=== PATIENT | male | born 1955 | race American Indian/Alaskan Native ===

== ENCOUNTER 2017-02-19 08:53 | Inpatient (IN) | payer OTHER ==
[2017-02-19] MEDS ORDERED: NITRO-BID 2% TP ONE ×2 (08:59→09:11)
[2017-02-19] MEDS ORDERED: HEPARIN 10,000 UNITS/10 ML ONE (08:59)
--- NOTE | 2017-02-19 09:00 | Emergency Department Report ---
ED Chest Pain HPI - General Stated Complaint: POSS CVA Time Seen by Provider: 02/19/17 08:59 - History of Present Illness Initial Comments: Patient describes the onset of moderately severe substernal gas-like chest pain which radiated to the left shoulder onset approximately 8 AM today. States he' s never seen a coffee blender before and has no prior history of heart attack. He is taking lisinopril for hypertension. He denies diabetes. MD Complaint: chest pain -: Sudden Pain Location: substernal Pain Radiation: LUE Severity: moderate, severe Quality: other Consistency: constant Improves With: nothing Worsens With: nothing re: nausea Treatments Prior to Arrival: aspirin (given by EMS) - Related Data Allergies Allergy/AdvReac Type Severity Reaction Status Date / Time No Known Allergies Allergy Verified 02/19/17 08:58 MARCELLA score - Marcella Score Age > 65: (0) No Aspirin use within the Past 7 Days: (0) No 3 or more CAD Risk Factors: (1) Yes 2 or more Angina events in past 24 hrs: (0) No Known CAD with more than 50% Stenosis: (0) No Elevated Cardiac Markers: (0) No ST Deviation Greater than 0.5mm: (1) Yes MARCELLA Score: 2 ED Review of Systems ROS: Stated complaint: POSS CVA Other details as noted in HPI Constitutional: denies: chills, fever Eyes: denies: eye pain, eye discharge, vision change ENT: denies: ear pain, throat pain Respiratory: denies: cough, shortness of breath, wheezing Cardiovascular: chest pain. denies: palpitations Endocrine: no symptoms reported Gastrointestinal: nausea. denies: abdominal pain, diarrhea Genitourinary: denies: urgency, dysuria Musculoskeletal: denies: back pain, joint swelling, arthralgia Skin: denies: rash, lesions Neurological: denies: headache, weakness, paresthesias Psychiatric: denies: anxiety, depression Hematological/Lymphatic: denies: easy bleeding, easy bruising ED Past Medical Hx - Past Medical History Hx Hypertension: No - Social History Substance Use Type: None ED Physical Exam - General General appearance: alert, in no apparent distress, obese - Head Head exam: Present: atraumatic, normocephalic - Eye Eye exam: Present: normal appearance - ENT ENT exam: Present: mucous membranes moist - Neck Neck exam: Present: normal inspection - Respiratory Respiratory exam: Present: normal lung sounds bilaterally. Absent: respiratory distress - Cardiovascular Cardiovascular Exam: Present: regular rate, normal rhythm. Absent: systolic murmur, diastolic murmur, rubs, gallop - GI/Abdominal GI/Abdominal exam: Present: soft, normal bowel sounds. Absent: distended, tenderness, guarding, rebound, rigid - Rectal Rectal exam: Present: deferred - Extremities Exam Extremities exam: Present: normal inspection - Back Exam Back exam: Present: normal inspection - Neurological Exam Neurological exam: Present: alert, oriented X3, CN II-XII intact. Absent: motor sensory deficit - Psychiatric Psychiatric exam: Present: normal affect, normal mood - Skin Skin exam: Present: warm, dry, intact, normal color. Absent: rash ED Course - Reevaluation(s) Reevaluation #1: Grinder Dresser call. taxation consultant notified. 02/19/17 09:00 Reevaluation #2: Patient already transported to the company laborer 02/19/17 09:15 ED Medical Decision Making - Lab Data Laboratory Results - last 24 hr 02/19/17 08:57 WBC 10.4 RBC 4.38 Hgb 13.1 Hct 40.3 MCV 92 MCH 30 MCHC 33 RDW 14.5 Plt Count 203 Lymph % (Auto) 28.3 Dare % (Auto) 12.8 H Eos % (Auto) 3.6 Baso % (Auto) 0.7 Lymph # 2.9 Dare # 1.3 H Eos # 0.4 Baso # 0.1 Seg Neutrophils % 54.6 Seg Neutrophils # 5.7 - EKG Data EKG shows normal: sinus rhythm Rate: normal - EKG Data Interpretation: other (consistent with inferior wall STEMI) Critical care attestation.: If time is entered above; I have spent that time in minutes in the direct care of this critically ill patient, excluding procedure time. ED Disposition Clinical Impression: ST elevation myocardial infarction (STEMI) of inferior wall Disposition: - OP ADMIT IP TO THIS HOSP Is pt being admited?: Yes Does the pt Need Aspirin: Yes Condition: Stable Time of Disposition: :
[2017-02-19] MEDS ORDERED: CALAN ONE (09:06)
[2017-02-19] MEDS ORDERED: HEPARIN/NS 5000 UNIT/500ML(CATH LAB) 1,000 ML IR ONE (09:06)
[2017-02-19] MEDS ORDERED: NITROGLYCERIN SYRINGE 3 ML ONE (09:07)
[2017-02-19] MEDS ORDERED: XYLOCAINE 2% INFILTRATI ONE (09:07)
[2017-02-19] MEDS ORDERED: WATER FOR INJ (PF) 0 ML ONE (09:08)
[2017-02-19] MEDS ORDERED: VERSED ONE (09:08)
[2017-02-19] MEDS ORDERED: NACL 0.9% 1000 ML 1,000 ML ONE (09:08)
[2017-02-19] MEDS ORDERED: NACL 0.9% 0 ML ONE (09:08)
[2017-02-19] MEDS ORDERED: ANGIOMAX IV ONE (09:09)
[2017-02-19] MEDS ORDERED: ZOFRAN IV ONE (09:11)
[2017-02-19] MEDS ORDERED: HEPARIN IV ONE (09:11)
[2017-02-19 09:15] LABS: Basophils % (Auto) 0.7 % (0.0-1.8); Eosinophils % (Auto) 3.6 % (0.0-4.3); Hematocrit 40.3 % (35.5-45.6); Hemoglobin 13.1 gm/dl (11.8-15.2); Mean Corpuscular HGB Conc 33 % (32-34); Mean Corpuscular Hemoglobin 30 pg (28-32); Mean Corpuscular Volume 92 fl (84-94); Platelet Count 203 K/mm3 (140-440); Red Blood Count 4.38 M/mm3 (3.65-5.03); Red Cell Distribution Width 14.5 % (13.2-15.2); White Blood Count 10.4 K/mm3 (4.5-11.0)
[2017-02-19] MEDS: HEPARIN 10,000 UNITS/10 ML ONE ×2 (09:17→09:40)
[2017-02-19] MEDS: NACL 0.9% 1000 ML 1,000 ML IV ONE ×2 (09:17→12:24)
[2017-02-19 09:24] LABS: Anion Gap 19 mmol/L; BUN/Creatinine Ratio 18.75; Blood Urea Nitrogen 15 mg/dL (9-20); Calcium 8.8 mg/dL (8.4-10.2); Carbon Dioxide 24 mmol/L (22-30); Chloride 98.7 mmol/L (98-107); Glucose 223 mg/dL (75-100); Potassium 3.5 mmol/L (3.6-5.0); Sodium 138 mmol/L (137-145)
[2017-02-19] MEDS: SUBLIMAZE ONE ×2 (09:24→09:32)
[2017-02-19] MEDS ORDERED: AGGRASTAT DRIP (12.5 MG/250 ML) 12,500 MCG/250 ML BAG IV ONE (09:36)
[2017-02-19] MEDS: TRIDIL DRIP 50MG/250ML 50 MG/250 ML BOTTLE ONE ×2 (09:45→20:00)
--- NOTE | 2017-02-19 09:45 | Admit Criteria Form ---
Admission Criteria Documentation: MYOCARDIAL INFARCTION Clinical Indications for Admission to Inpatient Care (Place 'X' for any and all applicable criteria): Admission is indicated for 1 or more of the following (1)(2)(3)(4): [X ]I. Acute UT [ ]II. Contraindications and/or Inappropriate clinical situations for Observational Care in patients with Myocardial Infarction, when ANY ONE of the following is required: [ ]a) Patient with High risk of cardiac embolism (e.g, patients with previous cardiac embolism, LVEF < 40%, age >75 and patients with prosthetic valve) 18 [ ]b) Patient with Moderate risk including DM patient, CAD and patient aged 65-75 18 [ ]c) Patient with any change in cardiac biomarker especially troponin should be managed as high risk in an inpatient setting 19 [ ]d) Physician judgement irrespective of ECG and other diagnostic findings 20 [ X]III.General contraindications and/or Inappropriate clinical situations for Observational Care in patients with Myocardial Infarction, when ANY ONE of the following is required: [ X]a) Prediction of prolongation of LOS based on ANY ONE of the following may be considered as a contraindication for observational care 2, 3, 4, 5, 6, 7, 8, 9, 10, 11 [ ]i) Age > 65 yrs. [ X]ii) Patient arriving by ambulance [ ]iii) Patient with high acuity [ ]iv) Patient requiring vital sign monitoring [ ]v) Patient on IV medication [ ]b) Systolic blood pressures greater than or equal to 180mmHg 3,12 [ ]c) Patient with altered mental status including delirium and other alteration of consciousness, (3) [ ]d) Patient whose discharge disposition will be to a fci home or rehabilitation home should not be managed in Emergency Department Observation Unit. CMS rule requires 3 days hospital stay before such placement. 3,13 [ ]e) Patient with failure to thrive due to broad array of etiologies 3 ,16,17 [ ]f) Inability to ambulate 3,14 Extended stay beyond goal length of stay may be needed for (1)(18)(20)(24)(25): [ ]a) Hemodynamic instability, persisting symptoms after intensive medical management, or recurring severe, prolonged symptoms [ ]b) Intravascular procedural complications such as acute vessel closure, stent thrombosis, stent malposition, or vessel dissection (26)(27)(28) [ ]c) Extravascular procedural complications such as retroperitoneal hematoma , pericardial effusion, or cardiac tamponade [ ]d) Entry site complications causing bleeding, hematoma or distal ischemia and requiring ongoing monitoring, surgical repair or surgical thrombectomy. Dangerous arrhythmia [ ]e) Complicated percutaneous coronary intervention (e.g., unsuccessful percutaneous coronary intervention or percutaneous coronary intervention of non- [place] vessel) [ ]f) Urgent or emergent surgery for complications of UT (e.g., ventricular rupture, valvular insufficiency) [ ]g) Surgical revascularization via coronary artery bypass graft [ ]h) Heart failure (e.g., pulmonary edema) [ ]i) Unstable pulmonary comorbidities, including COPD or pneumonia (31) [ ]j) Acute renal failure The original [employer] content created by [employer] has been revised. The portions of the content which have been revised are identified through the use of italic text or in bold, and [employer] has neither reviewed nor approved the modified material. All other unmodified content is copyright [employer] Please see references footnoted in the original [employer] edition 2016 Admission Criteria Met: Yes
[2017-02-19 10:00] LABS: INR 0.94 (0.87-1.13)
[2017-02-19] MEDS ORDERED: ASPIRIN PO SCH (10:00)
[2017-02-19 10:01] LABS: Partial Thromboplastin Time 26.5 Sec. (24.2-36.6)
[2017-02-19] MEDS ORDERED: EFFIENT PO ONE (10:04)
[2017-02-19] MEDS ORDERED: ALUM-MAG HYDROX-SIMETH 200-200-20MG/5ML ONE (10:04)
--- NOTE | 2017-02-19 10:19 | Consultation ---
History of Present Illness Consult date: 02/19/17 Consult reason: chest pain, other (STEMI) History of present illness: 61y M patient of [facility], history of HTN and sleep apnea. No prior cardiac history. No significant prior cardiac workup. Presented with chest pain and ECG consistent with acute STEMI of the inferior wall. Emergency cardiac cath-100% mid occlusion of the RCA was treated with a 3.5mm DE stent. Excellent result, MARCELLA 3 flow restored, pain and ST changes resolved. Admitted to CCU post AL. Past History Past Medical History: hypertension, other (GATITO) Medications and Allergies Allergies Allergy/AdvReac Type Severity Reaction Status Date / Time No Known Allergies Allergy Verified 02/19/17 08:58 Active Meds: Active Medications Heparin Sodium (Porcine) (Heparin) 4,000 unit IV ONCE ONE Stop: 02/19/17 09:12 Last Admin: 02/19/17 09:12 Dose: 4,000 unit Sodium Chloride (Nacl 0.9% 1000 Ml) 1,000 mls @ 42 mls/hr IV ONCE ONE Stop: 02/20/17 08:46 Review of Systems Cardiovascular: chest pain, shortness of breath, no orthopnea, no palpitations, no rapid/irregular heart beat, no edema, no syncope, no lightheadedness Physical Examination Vital Signs Resp 14 02/19/17 08:50 General appearance: mild distress, obese HEENT: Positive: PERRL Neck: Positive: neck supple Cardiac: Positive: Reg Rate and Rhythm Lungs: Positive: Decreased Breath Sounds Neuro: Positive: Grossly Intact Abdomen: Positive: Soft Male genitourinary: Positive: deferred Skin: Positive: Clear Extremities: Absent: edema Results 02/19/17 08:57 02/19/17 08:57 Coagulation 02/19/17 Range/Units 08:57 PT 12.5 (12.2-14.9) Sec. INR 0.94 (0.87-1.13) APTT 26.5 (24.2-36.6) Sec. CBC 02/19/17 Range/Units 08:57 WBC 10.4 (4.5-11.0) K/mm3 RBC 4.38 (3.65-5.03) M/mm3 Hgb 13.1 (11.8-15.2) gm/dl Hct 40.3 (35.5-45.6) % Plt Count 203 (140-440) K/mm3 Lymph # 2.9 (1.2-5.4) K/mm3 Lee # 1.3 H (0.0-0.8) K/mm3 Eos # 0.4 (0.0-0.4) K/mm3 Baso # 0.1 (0.0-0.1) K/mm3 Comprehensive Metabolic Panel 02/19/17 Range/Units 08:57 Sodium 138 (137-145) mmol/L Potassium 3.5 L (3.6-5.0) mmol/L Chloride 98.7 (98-107) mmol/L Carbon Dioxide 24 (22-30) mmol/L BUN 15 (9-20) mg/dL Creatinine 0.8 (0.8-1.5) mg/dL Glucose 223 H (75-100) mg/dL Calcium 8.8 (8.4-10.2) mg/dL EKG interpretations - Telemetry EKG Rhythm: Sinus Rhythm (Inferior STEMI) Assessment and Plan - Patient Problems (1) ST elevation myocardial infarction (STEMI) of inferior wall Current Visit: Yes Status: Acute Plan to address problem: 61y M patient of [facility], history of HTN and sleep apnea. No prior cardiac history. No significant prior cardiac workup. Presented with chest pain and ECG consistent with acute STEMI of the inferior wall. Emergency cardiac cath-100% mid occlusion of the RCA was treated with a 3.5mm DE stent. Excellent result, MARCELLA 3 flow restored, pain and ST changes resolved. Admitted to CCU post AL
--- NOTE | 2017-02-19 10:28 | Cardiac Catherization Report ---
CARDIAC CATHETERIZATION AND CORONARY ANGIOPLASTY REASON FOR PROCEDURE: The patient is a 61-year-old man with history of hypertension and sleep apnea, patient of [facility]. He was brought to the Emergency Room today with chest pain, ECG consistent with an acute ST elevation myocardial infarction of the inferior wall. Emergency cardiac catheterization protocol was activated. PROCEDURE: The patient was prepped and draped in a sterile fashion under emergency protocol. The right femoral artery was entered using the Seldinger technique followed by placement of a 6-Singaporean sheath. A 5-Singaporean sheath was placed in the right femoral vein. Left coronary angiography was performed using a #4 left Alec catheter. Following left coronary angiography, we exchanged for a #4 right Alec guide, which was used for right coronary angiography. The angiograms were reviewed. CORONARY ANGIOGRAPHY: The left main coronary artery contained no significant disease. The left anterior descending artery and its diagonal branches contained minimal irregularities. The circumflex artery and its obtuse marginal branches contained mild irregularities. The right coronary artery was dominant. This vessel was completely occluded in its mid segment. This was the infarct lesion. CORONARY ANGIOPLASTY: A 0.014 inch Coding Advisor 50 guidewire was then introduced into the right coronary artery, successfully penetrating the completely occluded mid vessel. Following wire placement, a 3.0 mm balloon catheter was used to predilate the stenosis. Following predilatation angioplasty, we deployed a 3.5 x 18 mm Resolute drug-eluting stent, covering the entire lesion of segment. The stent was inflated to optimal pressures. Following stenting, there was an excellent angiographic result, 0 residual stenosis. There was jewish of MARCELLA 3 flow. Angioplasty revealed a large caliber ectatic, dominant vessel. The patient was returned to the postprocedure unit in stable condition, following after the sheaths were removed and an Angio-Seal device was used over the right femoral arteriotomy. CONCLUSIONS: 1. Acute inferior wall ST elevation myocardial infarction. 2. Emergency cardiac catheterization protocol. 3. A 100% occlusion of the mid right coronary artery. 4. Successful primary angioplasty and stenting of the right coronary artery, using a 3.5 mm drug-eluting stent, with jewish of MARCELLA 3 flow. [facility]# [id number] [place]/NTS
[2017-02-19] MEDS ORDERED: AGGRASTAT DRIP (12.5 MG/250 ML) 12,500 MCG/250 ML BAG IV SCH (11:00)
[2017-02-19] MEDS ORDERED: NACL 0.9% 1000 ML 1,000 ML IV SCH (11:00)
[2017-02-19] MEDS ORDERED: ZOFRAN IV PRN (11:33)
[2017-02-19] MEDS ORDERED: MILK OF MAGNESIA PO PRN (11:33)
[2017-02-19] MEDS ORDERED: DULCOLAX PR PRN (11:33)
[2017-02-19] MEDS ORDERED: MORPHINE IV PRN (11:33)
[2017-02-19] MEDS ORDERED: TYLENOL PO PRN (11:33)
--- NOTE | 2017-02-19 14:09 | History and Physical Report ---
History of Present Illness Date of examination: 02/19/17 Date of admission: 02/19/17 11:33 Chief complaint: Chest pain History of present illness: Patient is a 61-year-old man with a history of morbid obesity BMI 47.5, hypertension and sleep apnea who presents with constant substernal moderately severe gas-like chest pains radiating to the left shoulder which started 8 AM today. Patient denies any aggravating or relieving factors. He received aspirin prior to arrival. Past medical history: As HPI Past surgical history: Internal hernia repair Social history: He denies smoking, alcohol abuse or illegal drugs Family history: He denies any significant family history ROS: as HPI and all other ROS reviewed and negative. Past History Past Medical History: hypertension, other (GATITO) Medications and Allergies Allergies Allergy/AdvReac Type Severity Reaction Status Date / Time No Known Allergies Allergy Verified 02/19/17 08:58 Home Medications Medication Instructions Recorded Confirmed Last Taken Type Dutasteride/Tamsulosin HCl 1 tab PO DAILY 02/19/17 02/19/17 02/19/17 History [Dutasteride-Tamsulosin 0.5-0.4] Lisinopril [Zestril TAB] 10 mg PO DAILY 02/19/17 02/19/17 02/19/17 History Motrin 800 MG tab 800 mg PO DAILY PRN 02/19/17 02/19/17 02/19/17 History Active Meds: Active Medications Acetaminophen (Tylenol) 650 mg PO Q4H PRN PRN Reason: Pain MILD(1-3)/Fever >100.5/LIN Aspirin (Ecotrin) 325 mg PO QDAY COURTNEY Atorvastatin Calcium (Lipitor) 40 mg PO QHS COURTNEY Bisacodyl (Dulcolax) 10 mg IA QDAY PRN PRN Reason: Constipation unrelieved by MOM Enoxaparin Sodium (Lovenox) 40 mg SUB-Q QDAY COURTNEY Famotidine (Pepcid) 20 mg IV QDAY COURTNEY Sodium Chloride (Nacl 0.9% 1000 Ml) 1,000 mls @ 42 mls/hr IV ONCE ONE Stop: 02/20/17 08:46 Last Admin: 02/19/17 12:24 Dose: 42 mls/hr Sodium Chloride (Nacl 0.9% 1000 Ml) 1,000 mls @ 100 mls/hr IV DIRECT COURTNEY Stop: 02/19/17 20:59 Sodium Chloride (Nacl 0.9% 1000 Ml) 1,000 mls @ 100 mls/hr IV DIRECT [facility] Lisinopril (Zestril) 2.5 mg PO QDAY [facility] Magnesium Hydroxide (Milk Of Magnesia) 30 ml PO Q4H PRN PRN Reason: Constipation Metoprolol Tartrate (Lopressor) 50 mg PO BID [facility] Morphine Sulfate (Morphine) 2 mg IV Q4H PRN PRN Reason: Pain, Moderate (4-6) Nitroglycerin (Nitro Dur) 0.4 mg TD DAILY@0600 [facility] Ondansetron HCl (Zofran) 4 mg IV Q8H PRN PRN Reason: N/V unrelieved by Reglan Prasugrel (Effient) 10 mg PO QDAY [facility] Exam - Physical Exam Narrative exam: GEN: WDWN, NAD, AWAKE, ALERT, ORIENTATED x 3 HEENT: NCAT, PERRL, EOMI, OP CLEAR NECK: SUPPLE, NO THYROMEGALY, NO JVD, NO LAD CVS: RRR, NORMAL S1S2 LUNGS/CHEST: CTA B, NORMAL CHEST EXPANSION B, GOOD AIR ENTRY B ABD: SOFT, NTND, GBS, NO REBOUND OR GUARDING EXT/SKIN: NO SIGNIFICANT EDEMA OR RASH MSK: FROM X 4 EXTREMITIES NEURO: CN 2-12 GROSSLY INTACT, NO FOCAL DEFICITS PSY: CALM - Constitutional Vitals: Temp Pulse Resp BP Pulse Ox 98.4 F 106 H 19 141/89 99 02/19/17 11:30 02/19/17 13:00 02/19/17 13:00 02/19/17 13:00 02/19/17 13:00 Results - Labs CBC & Chem 7: 02/19/17 08:57 02/19/17 08:57 Assessment and Plan Patient is a 61-year-old man with a history of morbid obesity BMI 47.5, hypertension and sleep apnea who presents with constant substernal moderately severe gas-like chest pains radiating to the left shoulder which started 8 AM today. Patient denies any aggravating or relieving factors. He received aspirin prior to arrival. He was found to have ST elevation OK, rig supervisor, Dr. Romero, requested hospitalist to admit for this. Patient was seen after emergent cardiac catheterization. It appears he had 100% occlusion of RCA which a stent was placed. -STEMI: Management per cardiology -Hypertension: Beta miguel angel -Morbid obesity: Lifestyle modification discussed in detail. -DVT prophylaxis: Effient Echo pending
[2017-02-19] MEDS: LOPRESSOR PO SCH ×2 (15:03→22:30)
--- NOTE | 2017-02-19 23:15 | Progress Note ---
Assessment and Plan CAD s/p AMI s/p PCI of RCA with JYOTSNA -100% mid occlusion of the RCA was treated with a 3.5mm DE stent HTN sleep apnea hemodynamically stable Asymptomatic Continue BB, statin and DAPT for at least 1 year continue CPAP for GATITO Subjective Date of service: 02/20/17 Interval history: No acute events. Resting comfortably. No chest pain or SOB. Objective Vital Signs Temp Pulse Pulse Pulse Resp Resp BP 02/19/17 22:30 77 131/83 02/19/17 22:13 79 20 135/77 02/19/17 22:00 78 19 21 135/77 02/19/17 21:30 78 19 135/76 02/19/17 21:00 86 14 125/82 02/19/17 20:30 81 15 130/81 02/19/17 20:15 02/19/17 20:00 99.1 F 87 19 76/46 02/19/17 19:40 87 19 119/65 02/19/17 19:30 84 20 119/65 02/19/17 19:21 82 17 114/62 02/19/17 19:10 79 22 168/102 02/19/17 19:00 93 H 18 176/117 02/19/17 18:50 86 16 151/102 02/19/17 18:40 80 17 137/90 02/19/17 18:30 78 18 137/90 02/19/17 18:21 78 19 107/83 02/19/17 18:11 82 16 107/77 02/19/17 18:01 87 18 121/79 02/19/17 17:51 79 16 121/79 02/19/17 17:41 76 18 127/79 02/19/17 17:30 83 16 127/79 02/19/17 17:21 84 14 120/71 02/19/17 17:11 83 16 126/75 02/19/17 17:00 83 82 17 126/75 02/19/17 16:51 88 16 125/71 02/19/17 16:41 87 17 132/90 02/19/17 16:31 90 20 132/90 02/19/17 16:21 93 H 15 145/88 02/19/17 16:15 99.6 F 02/19/17 16:13 02/19/17 16:12 94 H 16 02/19/17 16:06 99 H 15 02/19/17 15:30 100 H 17 135/80 02/19/17 15:08 99 H 16 140/90 02/19/17 15:03 104 H 153/90 02/19/17 14:55 104 H 15 153/90 02/19/17 14:30 105 H 12 154/94 02/19/17 14:00 103 H 16 152/89 02/19/17 13:52 101 H 16 02/19/17 13:30 104 H 20 141/78 02/19/17 13:00 106 H 19 141/89 02/19/17 12:30 97 H 16 152/108 02/19/17 12:15 100 H 20 153/96 02/19/17 12:00 91 H 22 138/86 02/19/17 11:45 85 20 130/90 Pulse Ox 02/19/17 22:30 02/19/17 22:13 98 02/19/17 22:00 99 02/19/17 21:30 97 02/19/17 21:00 96 02/19/17 20:30 95 02/19/17 20:15 97 02/19/17 20:00 97 02/19/17 19:40 95 02/19/17 19:30 96 02/19/17 19:21 95 02/19/17 19:10 96 02/19/17 19:00 02/19/17 18:50 02/19/17 18:40 97 02/19/17 18:30 97 02/19/17 18:21 98 02/19/17 18:11 96 02/19/17 18:01 96 02/19/17 17:51 99 02/19/17 17:41 99 02/19/17 17:30 100 02/19/17 17:21 98 02/19/17 17:11 96 02/19/17 17:00 97 02/19/17 16:51 99 02/19/17 16:41 99 02/19/17 16:31 99 02/19/17 16:21 99 02/19/17 16:15 02/19/17 16:13 99 02/19/17 16:12 99 02/19/17 16:06 99 02/19/17 15:30 100 02/19/17 15:08 100 02/19/17 15:03 02/19/17 14:55 100 02/19/17 14:30 97 02/19/17 14:00 99 02/19/17 13:52 98 02/19/17 13:30 98 02/19/17 13:00 99 02/19/17 12:30 100 02/19/17 12:15 99 02/19/17 12:00 100 02/19/17 11:45 100 - Physical Examination HEENT: Positive: PERRL Neck: Positive: neck supple Neuro: Positive: Grossly Intact Abdomen: Positive: Soft Skin: Positive: Clear Extremities: Absent: edema - Labs and Meds Lipids 02/19/17 Range/Units 16:31 Triglycerides 96 (2-149) mg/dL Cholesterol 148 (50-199) mg/dL HDL Cholesterol 59 (40-59) mg/dL Cholesterol/HDL Ratio 2.50 %
[2017-02-20] MEDS: NACL 0.9% 1000 ML 1,000 ML IV SCH ×2 (04:30→15:15)
[2017-02-20 04:51] LABS: Basophils % (Auto) 0.5 % (0.0-1.8); Eosinophils % (Auto) 0.7 % (0.0-4.3); Hematocrit 37.4 % (35.5-45.6); Mean Corpuscular HGB Conc 32 % (32-34); Mean Corpuscular Hemoglobin 30 pg (28-32); Mean Corpuscular Volume 92 fl (84-94); Platelet Count 211 K/mm3 (140-440); Red Blood Count 4.05 M/mm3 (3.65-5.03); Red Cell Distribution Width 14.7 % (13.2-15.2); White Blood Count 10.9 K/mm3 (4.5-11.0)
[2017-02-20 05:15] LABS: Creatine Kinase MB 46.9 ng/mL (0.0-4.0)
[2017-02-20 05:17] LABS: Anion Gap 18 mmol/L; BUN/Creatinine Ratio 17.14; Blood Urea Nitrogen 12 mg/dL (9-20); Calcium 8.3 mg/dL (8.4-10.2); Carbon Dioxide 25 mmol/L (22-30); Chloride 99.7 mmol/L (98-107); Creatine Kinase 954 units/L (55-170); Glucose 147 mg/dL (75-100); Potassium 4.4 mmol/L (3.6-5.0); Sodium 138 mmol/L (137-145)
[2017-02-20] MEDS: NITRO DUR TD SCH (05:22)
[2017-02-20] MEDS: PEPCID IV SCH (09:14)
[2017-02-20] MEDS: EFFIENT PO SCH (09:14)
[2017-02-20] MEDS: LOPRESSOR PO SCH ×2 (09:15→21:41)
[2017-02-20] MEDS: ZESTRIL PO SCH (09:15)
[2017-02-20] MEDS: BABY ASPIRIN PO SCH (09:15)
[2017-02-20] MEDS ORDERED: ECOTRIN PO SCH (10:00)
[2017-02-20] MEDS ORDERED: LOVENOX SUB-Q SCH (10:00)
--- NOTE | 2017-02-20 11:00 | XRay Report ---
AP CHEST : 02/20/17 02:06 CLINICAL: Status post PCI. COMPARISON:None FINDINGS: Normal heart and pulmonary vessels. The lungs are normally expanded and clear. The bones and soft tissues are unremarkable.No tubes or lines. IMPRESSION: Normal chest.
--- NOTE | 2017-02-20 12:03 | Progress Note ---
Assessment and Plan Assessment and plan: Patient is a 61-year-old man with a history of morbid obesity BMI 47.5, hypertension and sleep apnea who presents with constant substernal moderately severe gas-like chest pains radiating to the left shoulder which started 8 AM today. Patient denies any aggravating or relieving factors. He received aspirin prior to arrival. He was found to have ST elevation IA, advisory application developer, Dr. Romero, requested hospitalist to admit for this. Patient was seen after emergent cardiac catheterization. It appears he had 100% occlusion of RCA which a stent was placed. -STEMI, inferior: Management per cardiology, s/p PCI of RCA with JYOTSNA -Hypertension: Beta miguel angel -Morbid obesity: Lifestyle modification discussed in detail. -DVT prophylaxis: Effient -Acute Diastolic heart failure Echo report still pending, has been done Hypotensive: consider decreasing lopressor defer to Cardiology Ok to transfer out of ICU if ok with Cardiology History Interval history: Patient seen and examined. Follow up on acute IA. Overnight uneventful. No cp, sob, n/v or severe headaches. Imaging, old records, testing, labs, nursing notes reviewed. Hospitalist Physical - Physical exam Narrative exam: GEN: WDWN, NAD, AWAKE, ALERT, ORIENTATED x 3 HEENT: NCAT, PERRL, EOMI, OP CLEAR NECK: SUPPLE, NO THYROMEGALY, NO JVD, NO LAD CVS: RRR, NORMAL S1S2 LUNGS/CHEST: CTA B, NORMAL CHEST EXPANSION B, GOOD AIR ENTRY B ABD: SOFT, NTND, GBS, NO REBOUND OR GUARDING EXT/SKIN: NO SIGNIFICANT EDEMA OR RASH MSK: FROM X 4 EXTREMITIES NEURO: CN 2-12 GROSSLY INTACT, NO FOCAL DEFICITS PSY: CALM - Constitutional Vitals: Temp Pulse Resp BP Pulse Ox 98.8 F 68 16 80/48 97 02/20/17 08:00 02/20/17 09:30 02/20/17 09:30 02/20/17 11:01 02/20/17 11:01 General appearance: Present: obese. Absent: mild distress Results - Labs CBC & Chem 7: 02/20/17 04:24 02/20/17 04:24 Labs: Laboratory Last Values WBC 10.9 K/mm3 (4.5-11.0) 02/20/17 04:24 RBC 4.05 M/mm3 (3.65-5.03) 02/20/17 04:24 Hgb 12.0 gm/dl (11.8-15.2) 02/20/17 04:24 Hct 37.4 % (35.5-45.6) 02/20/17 04:24 MCV 92 fl (84-94) 02/20/17 04:24 MCH 30 pg (28-32) 02/20/17 04:24 MCHC 32 % (32-34) 02/20/17 04:24 RDW 14.7 % (13.2-15.2) 02/20/17 04:24 Plt Count 211 K/mm3 (140-440) 02/20/17 04:24 Lymph % (Auto) 21.7 % (13.4-35.0) 02/20/17 04:24 [place] % (Auto) 10.1 % (0.0-7.3) H 02/20/17 04:24 Eos % (Auto) 0.7 % (0.0-4.3) 02/20/17 04:24 Baso % (Auto) 0.5 % (0.0-1.8) 02/20/17 04:24 Lymph # 2.4 K/mm3 (1.2-5.4) 02/20/17 04:24 [place] # 1.1 K/mm3 (0.0-0.8) H 02/20/17 04:24 Eos # 0.1 K/mm3 (0.0-0.4) 02/20/17 04:24 Baso # 0.1 K/mm3 (0.0-0.1) 02/20/17 04:24 Seg Neutrophils % 67.0 % (40.0-70.0) 02/20/17 04:24 Seg Neutrophils # 7.3 K/mm3 (1.8-7.7) 02/20/17 04:24 PT 12.5 Sec. (12.2-14.9) 02/19/17 08:57 INR 0.94 (0.87-1.13) 02/19/17 08:57 APTT 26.5 Sec. (24.2-36.6) 02/19/17 08:57 Sodium 138 mmol/L (137-145) 02/20/17 04:24 Potassium 4.4 mmol/L (3.6-5.0) D 02/20/17 04:24 Chloride 99.7 mmol/L (98-107) 02/20/17 04:24 Carbon Dioxide 25 mmol/L (22-30) 02/20/17 04:24 Anion Gap 18 mmol/L 02/20/17 04:24 BUN 12 mg/dL (9-20) 02/20/17 04:24 Creatinine 0.7 mg/dL (0.8-1.5) L 02/20/17 04:24 Estimated GFR > 60 ml/min 02/20/17 04:24 BUN/Creatinine Ratio 17.14 % 02/20/17 04:24 Glucose 147 mg/dL (75-100) H 02/20/17 04:24 Calcium 8.3 mg/dL (8.4-10.2) L 02/20/17 04:24 Total Creatine Kinase 954 units/L (55-170) H 02/20/17 04:24 CK-MB (CK-2) 46.9 ng/mL (0.0-4.0) H 02/20/17 04:24 CK-MB (CK-2) Rel Index 4.9 (0-4) H 02/20/17 04:24 Troponin T 1.440 ng/mL (0.00-0.029) H* D 02/20/17 04:24 Triglycerides 96 mg/dL (2-149) 02/19/17 16:31 Cholesterol 148 mg/dL (50-199) 02/19/17 16:31 LDL Cholesterol Direct 70 mg/dL (50-130) 02/19/17 16:31 HDL Cholesterol 59 mg/dL (40-59) 02/19/17 16:31 Cholesterol/HDL Ratio 2.50 % 02/19/17 16:31 Blood Type B POSITIVE 02/19/17 08:57 Antibody Screen TNR 02/19/17 08:57 QUYEN Antibody Screen Negative 02/19/17 08:57
--- NOTE | 2017-02-20 13:50 | Consultation ---
History of Present Illness - Reason for Consult Consult date: 02/20/17 NSTEMI s/p PCI with ICU Care Requesting physician: DWIGHT FORD - History of Present Illness 61 y/o male with NSTEMI, status post PCI on yesterday. Brought to ICU for monitoring. Stable. Per nursing seen by Cards this am but no note yet today. IMS ready to transfer out of unit which I agree with. Past History Past Medical History: hypertension, other (GATITO) Medications and Allergies Allergies Allergy/AdvReac Type Severity Reaction Status Date / Time No Known Allergies Allergy Verified 02/19/17 08:58 Home Medications Medication Instructions Recorded Confirmed Last Taken Type Dutasteride/Tamsulosin HCl 1 tab PO DAILY 02/19/17 02/19/17 02/19/17 History [Dutasteride-Tamsulosin 0.5-0.4] Lisinopril [Zestril TAB] 10 mg PO DAILY 02/19/17 02/19/17 02/19/17 History Motrin 800 MG tab 800 mg PO DAILY PRN 02/19/17 02/19/17 02/19/17 History Active Meds: Active Medications Acetaminophen (Tylenol) 650 mg PO Q4H PRN PRN Reason: Pain MILD(1-3)/Fever >100.5/LIN Aspirin (Baby Aspirin) 81 mg PO QDAY [facility] Last Admin: 02/20/17 09:15 Dose: 81 mg Atorvastatin Calcium (Lipitor) 40 mg PO QHS [facility] Last Admin: 02/19/17 22:28 Dose: 40 mg Bisacodyl (Dulcolax) 10 mg [place] QDAY PRN PRN Reason: Constipation unrelieved by MOM Famotidine (Pepcid) 20 mg IV QDAY [facility] Last Admin: 02/20/17 09:14 Dose: 20 mg Sodium Chloride (Nacl 0.9% 1000 Ml) 1,000 mls @ 100 mls/hr IV DIRECT [facility] Last Admin: 02/20/17 04:30 Dose: 100 mls/hr Lisinopril (Zestril) 2.5 mg PO QDAY [facility] Last Admin: 02/20/17 09:15 Dose: 2.5 mg Magnesium Hydroxide (Milk Of Magnesia) 30 ml PO Q4H PRN PRN Reason: Constipation Metoprolol Tartrate (Lopressor) 50 mg PO BID [facility] Last Admin: 02/20/17 09:15 Dose: 50 mg Morphine Sulfate (Morphine) 2 mg IV Q4H PRN PRN Reason: Pain, Moderate (4-6) Nitroglycerin (Nitro Dur) 0.4 mg TD DAILY@0600 [facility] Last Admin: 02/20/17 05:22 Dose: 0.4 mg Ondansetron HCl (Zofran) 4 mg IV Q8H PRN PRN Reason: N/V unrelieved by Reglan Prasugrel (Effient) 10 mg PO QDAY [facility] Last Admin: 02/20/17 09:14 Dose: 10 mg Exam - Constitutional Vitals: Temp Pulse Resp BP Pulse Ox 98.4 F 72 15 110/67 96 02/20/17 12:00 02/20/17 13:01 02/20/17 13:01 02/20/17 13:01 02/20/17 13:01 General appearance: Present: no acute distress - EENT Eyes: Present: PERRL, EOM intact ENT: hearing intact - Respiratory Respiratory effort: normal Respiratory: bilateral: CTA - Cardiovascular Rhythm: regular Heart Sounds: Present: S1 & S2 Results - Labs CBC & Chem 7: 02/20/17 04:24 02/20/17 04:24 Labs: Abnormal lab results 02/19/17 02/20/17 02/20/17 Range/Units 16:31 04:24 04:24 [place] % (Auto) 10.1 H (0.0-7.3) % [place] # 1.1 H (0.0-0.8) K/mm3 Creatinine 0.7 L (0.8-1.5) mg/dL Glucose 147 H (75-100) mg/dL Calcium 8.3 L (8.4-10.2) mg/dL Total Creatine Kinase 954 H (55-170) units/L CK-MB (CK-2) 46.9 H (0.0-4.0) ng/mL CK-MB (CK-2) Rel Index 4.9 H (0-4) Troponin T 3.360 H* D 1.440 H* D (0.00-0.029) ng/mL - Imaging and Cardiology Chest x-ray: image reviewed (clear) Assessment and Plan 61 y/o male with NSTEMI, status post PCI 1. Agree with [facility] in regards to transfer 2. Will sign off once out of unit
[2017-02-21] MEDS: NITRO DUR TD SCH (06:55)
--- NOTE | 2017-02-21 08:25 | Progress Note ---
Assessment and Plan CAD s/p AMI s/p PCI of RCA with JYOTSNA -100% mid occlusion of the RCA was treated with a 3.5mm DE stent HTN sleep apnea hemodynamically stable Asymptomatic Continue BB, statin and DAPT for at least 1 year continue CPAP for GATITO Patient may be discharged home from CV standpoint. Patient should follow up with [facility] in 1 week Subjective Date of service: 02/21/17 Interval history: No acute events. Resting comfortably. No chest pain or SOB. Objective Vital Signs Temp Pulse Pulse Resp Resp BP BP 02/21/17 06:55 75 130/88 02/21/17 04:57 98.2 F 75 20 130/88 02/21/17 00:00 18 02/20/17 22:01 78 20 103/63 02/20/17 22:00 83 22 20 02/20/17 21:41 81 103/63 02/20/17 21:31 78 23 103/63 02/20/17 21:00 73 18 118/76 02/20/17 20:31 75 19 108/68 02/20/17 20:00 77 77 14 108/68 02/20/17 19:54 99.6 F 02/20/17 19:42 02/20/17 19:35 79 02/20/17 19:31 83 21 103/68 02/20/17 19:00 77 17 103/68 02/20/17 18:31 79 17 107/69 02/20/17 18:01 80 21 107/69 02/20/17 17:31 83 20 105/70 02/20/17 17:00 75 17 105/70 02/20/17 16:31 76 17 110/67 02/20/17 16:01 81 18 110/67 02/20/17 16:00 99.1 F 02/20/17 15:31 70 15 110/67 02/20/17 15:01 76 18 110/67 02/20/17 14:31 79 17 110/67 02/20/17 14:01 75 19 110/67 02/20/17 13:31 93 H 15 110/67 02/20/17 13:01 72 15 110/67 02/20/17 12:31 79 13 110/67 02/20/17 12:01 79 16 110/67 02/20/17 12:00 98.4 F 02/20/17 11:31 74 14 110/67 02/20/17 11:01 80/48 02/20/17 10:30 108/69 02/20/17 10:01 112/64 02/20/17 09:30 68 16 112/64 02/20/17 09:15 70 109/70 02/20/17 09:00 77 17 109/70 02/20/17 08:30 74 17 99/66 Pulse Ox 02/21/17 06:55 02/21/17 04:57 99 02/21/17 00:00 02/20/17 22:01 02/20/17 22:00 94 02/20/17 21:41 02/20/17 21:31 97 02/20/17 21:00 97 02/20/17 20:31 95 02/20/17 20:00 96 02/20/17 19:54 02/20/17 19:42 97 02/20/17 19:35 02/20/17 19:31 95 02/20/17 19:00 93 02/20/17 18:31 97 02/20/17 18:01 95 02/20/17 17:31 97 02/20/17 17:00 99 02/20/17 16:31 97 02/20/17 16:01 98 02/20/17 16:00 100 02/20/17 15:31 96 02/20/17 15:01 95 02/20/17 14:31 97 02/20/17 14:01 97 02/20/17 13:31 96 02/20/17 13:01 96 02/20/17 12:31 95 02/20/17 12:01 96 02/20/17 12:00 02/20/17 11:31 97 02/20/17 11:01 97 02/20/17 10:30 97 02/20/17 10:01 75 L 02/20/17 09:30 97 02/20/17 09:15 02/20/17 09:00 96 02/20/17 08:30 97 - Physical Examination HEENT: Positive: PERRL Neck: Positive: neck supple Neuro: Positive: Grossly Intact Abdomen: Positive: Soft Skin: Positive: Clear Extremities: Absent: edema
[2017-02-21 09:46] LABS: Hematocrit 37.7 % (35.5-45.6); Hemoglobin 12.1 gm/dl (11.8-15.2); Mean Corpuscular HGB Conc 32 % (32-34); Mean Corpuscular Hemoglobin 30 pg (28-32); Mean Corpuscular Volume 93 fl (84-94); Platelet Count 216 K/mm3 (140-440); Red Blood Count 4.06 M/mm3 (3.65-5.03); Red Cell Distribution Width 14.5 % (13.2-15.2); White Blood Count 10.5 K/mm3 (4.5-11.0)
--- NOTE | 2017-02-21 09:47 | Discharge Summary ---
Providers - Providers Date of Admission: 02/19/17 11:33 Date of discharge: 02/21/17 Attending physician: DWIGHT FORD 02/19/17 14:02 Consult to Physician [CONS] Routine Consulting Provider: MARIN FLORES Reason For Exam: for icu admission Place consult to:: Mark MASSEY Notified:: yes Phone number called:: [phone] Was contact made?: Yes If yes, spoke with:: Dr Flores Time called:: 20:06 Primary care physician: OFFICE ASSISTANT Hospitalization Condition: Stable Hospital course: Patient is a 61-year-old man with a history of morbid obesity BMI 47.5, hypertension and sleep apnea who presents with constant substernal moderately severe gas-like chest pains radiating to the left shoulder which started 8 AM today. Patient denies any aggravating or relieving factors. He received aspirin prior to arrival. He was found to have ST elevation NC, purchasing engineer, Dr. Sanchez, requested hospitalist to admit for this. Patient was seen after emergent cardiac catheterization. It appears he had 100% occlusion of RCA which a stent was placed. -STEMI, inferior: Management per cardiology, s/p PCI of RCA with JYOTSNA -Hypertension: Beta miguel angel -Morbid obesity: Lifestyle modification discussed in detail. -DVT prophylaxis: Effient -Acute Diastolic heart failure Echo report still pending, has been done Hypotensive: consider decreasing lopressor defer to Cardiology Ok to d/c per Cardiology, I spoke with Dr. Ching==> increase lisinopril to 5mg po qday Disposition: DC-01 TO HOME OR SELFCARE Time spent for discharge: 32 minutes Core Measure Documentation - Palliative Care Palliative Care/ Comfort Measures: Not Applicable - Core Measures Any of the following diagnoses?: acute NC - VTE Discharge Requirements Deep Vein Thrombosis/Pulmonary Embolism Present on Admission: No Has pt received <5 days of overlap therapy or INR<2.0: No Anticoagulant overlap therapy prescribed at discharge: No Contraindication No Overlap Therapy order at DC: Not Indicated - Acute NC Discharge Requirements Aspirin at discharge: Yes MOSHE/ARB for LVSD if EF <40%: Yes Beta miguel angel at discharge: Yes Statin for LDL = or >100 mg/dl on DC: Yes Exam - Physical Exam Narrative exam: GEN: WDWN, NAD, AWAKE, ALERT, ORIENTATED x 3 HEENT: NCAT, PERRL, EOMI, OP CLEAR NECK: SUPPLE, NO THYROMEGALY, NO JVD, NO LAD CVS: RRR, NORMAL S1S2 LUNGS/CHEST: CTA B, NORMAL CHEST EXPANSION B, GOOD AIR ENTRY B ABD: SOFT, NTND, GBS, NO REBOUND OR GUARDING EXT/SKIN: NO SIGNIFICANT EDEMA OR RASH MSK: FROM X 4 EXTREMITIES NEURO: CN 2-12 GROSSLY INTACT, NO FOCAL DEFICITS PSY: CALM - Constitutional Vitals: Temp Pulse Resp BP Pulse Ox 98.2 F 75 20 130/88 99 02/21/17 04:57 02/21/17 06:55 02/21/17 04:57 02/21/17 06:55 02/21/17 04:57 Plan Activity: other (no strenous activity, work until cleared by Cardiology) Diet: low salt Follow up with: PRIMARY MD HUDSON [Primary Care Provider] - 7 Days RAI SANCHEZ MD [Staff Physician] - 7 Days Prescriptions: AtorvaSTATin [Lipitor] 40 mg PO QHS #30 tablet Lisinopril [Zestril TAB] 5 mg PO QDAY #30 tablet Metoprolol [Lopressor TAB] 50 mg PO BID #60 tablet Prasugrel [Effient] 10 mg PO QDAY #30 tablet
[2017-02-21 10:00] LABS: Anion Gap 15 mmol/L; BUN/Creatinine Ratio 13.75; Blood Urea Nitrogen 11 mg/dL (9-20); Calcium 8.2 mg/dL (8.4-10.2); Carbon Dioxide 25 mmol/L (22-30); Chloride 102.8 mmol/L (98-107); Glucose 167 mg/dL (75-100); Potassium 4.1 mmol/L (3.6-5.0); Sodium 139 mmol/L (137-145)
[2017-02-21] MEDS ORDERED: PEPCID PO SCH (10:00)
[2017-02-21] MEDS: PEPCID IV SCH ×2 (10:07→10:16)
[2017-02-21] MEDS: LOPRESSOR PO SCH (10:07)
[2017-02-21] MEDS: ZESTRIL PO SCH (10:07)
[2017-02-21] MEDS: BABY ASPIRIN PO SCH (10:08)
[2017-02-21] MEDS: EFFIENT PO SCH (10:08)
[2017-02-21 13:15] VITALS: BP 111/59
== END 2017-02-21 15:12 | disposition home or self-care (01) | DRG 246 ==
LOC: ED 08:53 → CATH 10:49 → CC1 11:33 → 4A 02-20 23:27
PROVIDERS: ADMIT Internal Medicine; ATTEND Internal Medicine
PROC: 4A023N7 Measurement of Cardiac Sampling and Pressure, Left Heart, Percutaneous Approach (ICD-10-PCS; principal; 2017-02-19)
PROC: 027034Z Dilation of Coronary Artery, One Artery with Drug-eluting Intraluminal Device, Percutaneous Approach (ICD-10-PCS; 2017-02-19)
PROC: B2111ZZ Fluoroscopy of Multiple Coronary Arteries using Low Osmolar Contrast (ICD-10-PCS; 2017-02-19)
PROC: B2151ZZ Fluoroscopy of Left Heart using Low Osmolar Contrast (ICD-10-PCS; 2017-02-19)
DX: I21.19 ST elevation (STEMI) myocardial infarction involving other coronary artery of inferior wall (principal); I50.31 Acute diastolic (congestive) heart failure; Z68.42 Body mass index [BMI] 45.0-49.9, adult; E66.01 Morbid (severe) obesity due to excess calories; I11.0 Hypertensive heart disease with heart failure; I25.10 Atherosclerotic heart disease of native coronary artery without angina pectoris; G47.33 Obstructive sleep apnea (adult) (pediatric); I25.82 Chronic total occlusion of coronary artery
CPT/HCPCS: 36415; 71010; 80048; 80061; 82550; 82553; 83735; 84484; 85014; 85018; 85025; 85027; 85610; 85730; 86850; 86900; 86901; 92941; 93005; 93010; 93306; 93454; 94660; 94760; A9270-GY; C1725; C1760; C1769; C1874; C1887; C1894; C9606; J0583; J1644; J2250; J3010; J3246; J7030; Q9967